=== PATIENT | female | born 1940 | race Two or more races ===

== ENCOUNTER 2023-08-27 12:14 | Emergency (ER) | payer OTHER ==
[~2023-08-27] VITALS: Ht 160 cm; Wt 81.6 kg
[2023-08-27] MEDS ORDERED: TIROSINT50 MCG PO (13:07)
[2023-08-27] MEDS ORDERED: CELEBREX200MG PO (15:23)
[2023-08-27] MEDS ORDERED: TIZANIDINE HCL2 M1 PO (15:23)
== END 2023-08-27 15:37 | disposition home or self-care (01) ==
LOC: ER 12:14
DX: S39.012A Strain of muscle, fascia and tendon of lower back, initial encounter (principal); X58.XXXA Exposure to other specified factors, initial encounter; Y93.9 Activity, unspecified; Y92.9 Unspecified place or not applicable; Y99.9 Unspecified external cause status; Z88.0 Allergy status to penicillin
CPT/HCPCS: 96372; 99283; J1885; J2360

== ENCOUNTER 2025-05-20 09:52 | Outpatient (CLI) | payer OTHER ==
[~2025-05-20 09:52] MED LIST: CELEBREX200MG PO; TIROSINT50 MCG PO; TIZANIDINE HCL2 M1 PO
== END 2025-05-20 10:07 | disposition home or self-care (01) ==
LOC: RAD 09:52
PROVIDERS: ATTEND Ophthalmology
DX: I10 Essential (primary) hypertension (principal); Z01.811 Encounter for preprocedural respiratory examination